=== PATIENT | female | born 1975 | race African-American/Black ===

== ENCOUNTER 2017-08-09 11:50 | Emergency (ER) | payer OTHER ==
[~2017-08-09] VITALS: Ht 170.2 cm; Wt 43.0 kg
[~2017-08-09 11:50] MED LIST: AMOX125S8 PO; DIPH25CA83 PO; TRAM50TA3 PO
[2017-08-09] MEDS ORDERED: IBUPROFEN 400MG TABLET PO ONE (15:30)
[2017-08-09] MEDS ORDERED: ACETAMINOPHEN 500MG TABLET PO ONE (15:30)
[2017-08-09 17:20] VITALS: BP 127/87
== END 2017-08-09 17:54 | disposition home or self-care (01) ==
LOC: ER 12:27
DX: M25.512 Pain in left shoulder (principal); M79.602 Pain in left arm; M85.80 Other specified disorders of bone density and structure, unspecified site; F11.10 Opioid abuse, uncomplicated; F12.10 Cannabis abuse, uncomplicated; W22.8XXA Striking against or struck by other objects, initial encounter; Y93.89 Activity, other specified; Y92.811 Bus as the place of occurrence of the external cause
CPT/HCPCS: 29125; 73030; 73130; 81025; 99284

== ENCOUNTER 2019-05-29 13:01 | Inpatient (IN) | payer MEDICAID, OTHER ==
[~2019-05-29] VITALS: Ht 152.4 cm; Wt 44.0 kg
[~2019-05-29 13:01] MED LIST changes: +AMOX125S12 PO; -AMOX125S8 PO
[2019-05-29] MEDS ORDERED: ONDANSETRON HCL 4MG/2ML INJ IV STA (13:39)
[2019-05-29] MEDS ORDERED: MORPHINE SULFATE 4 MG/ML CPJ (NOT FOR IM USE) IV STA (13:39)
[2019-05-29] MEDS ORDERED: SODIUM CHLORIDE 0.9% 1,000 ML IV ONE (13:39)
[2019-05-29] MEDS ORDERED: FAMOTIDINE 20MG/2ML VIAL IV STA (13:39)
[2019-05-29 14:04] LABS: BASOPHILS % 1.1 % (0.0-2.0); EOSINOPHILS % 1.4 % (0.0-5.0); HEMATOCRIT. 35.4 % (36.0-48.0); HEMOGLOBIN. 11.9 g/dL (12.0-16.0); LYMPHOCYTES % 22.5 % (20.0-50.0); MEAN CORPUSCULAR HEMOGLOBIN 32.7 pg (28.0-32.0); MEAN CORPUSCULAR VOLUME 96.9 fL (81.0-99.0); MEAN PLATELET VOLUME 6.7 fl (7.4-10.4); MONOCYTES % 10.4 % (2.0-8.0); NEUTROPHILS % 64.6 % (40.0-76.0); PLATELET 298 x1000/uL (130-400); RED BLOOD CELL COUNT 3.66 mill/uL (4.2-5.4); RED CELL DISTRIBUTION WIDTH 18.3 % (11.6-14.6)
[2019-05-29 14:12] LABS: CHLORIDE 101 mEq/L (98-107)
[2019-05-29 14:14] LABS: INR 1.3; PROTHROMBIN TIME 12.9 sec (9.6-11.0)
[2019-05-29 14:34] LABS: HCG SCREEN NEGATIVE
[2019-05-29] MEDS ORDERED: SODIUM CHLORIDE 0.9% 1000ML BAG (SEPSIS BOLUS) IV NR (14:45)
[2019-05-29] MEDS ORDERED: ENOXAPARIN 40MG/0.4ML SYR SUBCUT SCH (15:00)
[2019-05-29] MEDS ORDERED: GUAIFENESIN 200MG/10ML SUGAR FREE UDC PO PRN (15:00)
[2019-05-29] MEDS ORDERED: DIPHENHYDRAMINE 50MG/ML VIAL IV PRN (15:00)
[2019-05-29] MEDS ORDERED: CLONIDINE 0.1MG TABLET PO PRN (15:00)
[2019-05-29] MEDS ORDERED: MAGNESIUM/ALUMINUM HYDROXIDE/SIMETHICONE 30ML UDC PO PRN (15:00)
[2019-05-29] MEDS ORDERED: ONDANSETRON HCL 4MG/2ML INJ IV PRN (15:00)
[2019-05-29] MEDS ORDERED: ACETAMINOPHEN 325MG TABLET PO PRN (15:00)
[2019-05-29 15:24] LABS: PHOSPHORUS 3.5 mg/dL (2.5-4.9)
[2019-05-29 17:12] LABS: CLARITY URINE CLOUDY (CLEAR); COLOR URINE YELLOW (YELLOW); KETONES URINE NEGATIVE (NEGATIVE); LEUKOCYTE ESTERASE URINE 2+ (NEGATIVE); NITRITE URINE POSITIVE (NEGATIVE); OCCULT BLOOD URINE TRACE (NEGATIVE); PROTEIN URINE NEGATIVE (NEGATIVE); SPECIFIC GRAVITY URINE 1.062 (1.005-1.030); UROBILINOGEN URINE 0.2 E.U./dL (0.2-1.0)
[2019-05-29] MEDS ORDERED: CEFTRIAXONE 1 G PREMIX 50 ML IV NR (17:45)
[2019-05-29] MEDS: MORPHINE SULFATE 2 MG/ML CPJ (NOT FOR IM USE) IV PRN ×2 (18:12→22:19)
[2019-05-29] MEDS ORDERED: IOHEXOL-300 100 ML BOTTLE ONE (18:29)
[2019-05-29 20:15] VITALS: BP 133/85
[2019-05-29] MEDS ORDERED: DEXTROSE 50% WATER 50ML SYRINGE IV PRN (21:00)
[2019-05-29] MEDS: BLOOD SUGAR DIAGNOSTIC STRIP TEST SCH (21:04)
[2019-05-29] MEDS: DEXT 5%/0.9% NACL 1,000 ML IV SCH (21:39)
[2019-05-29] MEDS: ENOXAPARIN 30MG/0.3ML SYR SUBCUT SCH (21:40)
[2019-05-29] MEDS: INSULIN LISPRO 100 UNITS/ML SUBCUT SCH (21:57)
[2019-05-29 23:07] VITALS: BP 133/85
[2019-05-30] VITALS: BP 124/79
[2019-05-30 04:00] VITALS: BP 151/95
[2019-05-30] MEDS: MORPHINE SULFATE 2 MG/ML CPJ (NOT FOR IM USE) IV PRN ×5 (04:29→22:43)
[2019-05-30] MEDS: BLOOD SUGAR DIAGNOSTIC STRIP TEST SCH ×4 (06:30→21:45)
[2019-05-30 06:55] LABS: BASOPHILS % 0.8 % (0.0-2.0); EOSINOPHILS % 1.5 % (0.0-5.0); HEMATOCRIT. 32.5 % (36.0-48.0); HEMOGLOBIN. 10.9 g/dL (12.0-16.0); LYMPHOCYTES % 13.6 % (20.0-50.0); MEAN CORPUSCULAR HEMOGLOBIN 32.7 pg (28.0-32.0); MEAN CORPUSCULAR VOLUME 97.3 fL (81.0-99.0); MEAN PLATELET VOLUME 7.2 fl (7.4-10.4); MONOCYTES % 7.1 % (2.0-8.0); PLATELET 241 x1000/uL (130-400); RED BLOOD CELL COUNT 3.34 mill/uL (4.2-5.4)
[2019-05-30 08:00] VITALS: BP 130/79
[2019-05-30 08:10] LABS: HEPATITIS B SURFACE ANTIGEN NEGATIVE
[2019-05-30 08:37] LABS: CHLORIDE 101 mEq/L (98-107)
[2019-05-30 08:39] LABS: HEPATITIS A AB IGM NEGATIVE (NEGATIVE)
[2019-05-30 08:48] LABS: GAMMA GLUTAMYL TRANSPEPTIDASE 274 IU/L (7-32); HDL CHOLESTEROL 41 mg/dL (40-59); LDL CHOLESTEROL 27 mg/dL (5-100)
[2019-05-30] MEDS: DOCUSATE SODIUM 100MG CAPSULE PO PRN (08:51)
[2019-05-30] MEDS: INSULIN LISPRO 100 UNITS/ML SUBCUT SCH ×4 (09:03→21:00)
[2019-05-30 12:00] VITALS: BP 128/79
[2019-05-30] MEDS ORDERED: CEFTRIAXONE 1 G PREMIX 50 ML IV SCH (12:45)
[2019-05-30] MEDS ORDERED: POTASSIUM CHLORIDE 20MEQ TABLET SR PO SCH (14:00)
[2019-05-30] MEDS: CEFTRIAXONE 1,000 MG in DEXTROSE 5% WATER 50 ML IV SCH (15:51)
[2019-05-30 16:10] VITALS: BP 129/73
[2019-05-30 20:00] VITALS: BP 125/78
[2019-05-30] MEDS: ENOXAPARIN 30MG/0.3ML SYR SUBCUT SCH (20:27)
[2019-05-30] MEDS: DEXT 5%/0.9% NACL 1,000 ML IV SCH (20:32)
[2019-05-31] VITALS: BP 118/73
[2019-05-31] MEDS: MORPHINE SULFATE 2 MG/ML CPJ (NOT FOR IM USE) IV PRN ×3 (03:56→19:57)
[2019-05-31 04:00] VITALS: BP 103/65
[2019-05-31] MEDS: BLOOD SUGAR DIAGNOSTIC STRIP TEST SCH ×4 (06:43→21:50)
[2019-05-31 08:00] VITALS: BP 115/67
[2019-05-31] MEDS: INSULIN LISPRO 100 UNITS/ML SUBCUT SCH ×4 (08:10→22:09)
[2019-05-31 10:52] LABS: BASOPHILS % 0.7 % (0.0-2.0); EOSINOPHILS % 4.3 % (0.0-5.0); HEMATOCRIT. 33.8 % (36.0-48.0); HEMOGLOBIN. 11.4 g/dL (12.0-16.0); MEAN CORPUSCULAR HEMOGLOBIN 32.9 pg (28.0-32.0); MEAN CORPUSCULAR VOLUME 97.4 fL (81.0-99.0); MEAN PLATELET VOLUME 7.5 fl (7.4-10.4); MONOCYTES % 9.6 % (2.0-8.0); NEUTROPHILS % 60.4 % (40.0-76.0); PLATELET 206 x1000/uL (130-400); RED BLOOD CELL COUNT 3.46 mill/uL (4.2-5.4); RED CELL DISTRIBUTION WIDTH 17.4 % (11.6-14.6)
[2019-05-31 12:00] VITALS: BP 151/80
[2019-05-31] MEDS: DOCUSATE SODIUM 100MG CAPSULE PO PRN (12:06)
[2019-05-31] MEDS: CEFTRIAXONE 1,000 MG in DEXTROSE 5% WATER 50 ML IV SCH (13:20)
[2019-05-31 16:00] VITALS: BP 136/79
[2019-05-31 18:46] LABS: CHLORIDE 98 mEq/L (98-107)
[2019-05-31] MEDS: LIPASE/PROTEASE/AMYLASE 4,200/14,200/24,600 UNITS CAP DR PO SCH (19:13)
[2019-05-31 20:00] VITALS: BP 117/78
[2019-05-31] MEDS ORDERED: LEVOFLOXACIN 750MG PREMIX 150 ML IV SCH (20:00)
[2019-05-31] MEDS: ENOXAPARIN 30MG/0.3ML SYR SUBCUT SCH (21:50)
[2019-05-31] MEDS: DEXT 5%/0.9% NACL 1,000 ML IV SCH (21:51)
[2019-06-01] VITALS: BP 114/75
[2019-06-01] MEDS: MORPHINE SULFATE 2 MG/ML CPJ (NOT FOR IM USE) IV PRN ×3 (00:09→10:48)
[2019-06-01 04:12] VITALS: BP 142/65
[2019-06-01] MEDS: DEXT 5%/0.9% NACL 1,000 ML IV SCH (04:14)
[2019-06-01] MEDS: BLOOD SUGAR DIAGNOSTIC STRIP TEST SCH ×2 (06:58→12:40)
[2019-06-01 08:00] VITALS: BP 117/79
[2019-06-01] MEDS: LIPASE/PROTEASE/AMYLASE 4,200/14,200/24,600 UNITS CAP DR PO SCH (08:38)
[2019-06-01] MEDS: DOCUSATE SODIUM 100MG CAPSULE PO PRN (08:38)
[2019-06-01] MEDS: INSULIN LISPRO 100 UNITS/ML SUBCUT SCH (08:39)
[2019-06-01 11:39] LABS: BASOPHILS % 0.4 % (0.0-2.0); HEMATOCRIT. 31.4 % (36.0-48.0); HEMOGLOBIN. 10.4 g/dL (12.0-16.0); LYMPHOCYTES % 19.6 % (20.0-50.0); MEAN CORPUSCULAR HEMOGLOBIN 32.6 pg (28.0-32.0); MEAN CORPUSCULAR VOLUME 97.8 fL (81.0-99.0); MEAN PLATELET VOLUME 7.8 fl (7.4-10.4); MONOCYTES % 7.8 % (2.0-8.0); NEUTROPHILS % 69.2 % (40.0-76.0); PLATELET 182 x1000/uL (130-400); RED BLOOD CELL COUNT 3.21 mill/uL (4.2-5.4); RED CELL DISTRIBUTION WIDTH 17.8 % (11.6-14.6)
[2019-06-01] MEDS ORDERED: LEVO750T46 MT (12:08)
[2019-06-01] MEDS ORDERED: LIPA1CAP27 PO (12:08)
[2019-06-01] MEDS ORDERED: METF-414 MT (12:08)
[2019-06-01 14:08] VITALS: BP 128/86
== END 2019-06-01 14:37 | disposition home or self-care (01) | DRG 282 ==
LOC: ER 13:01 → 7WST 14:57 → EDBEDREQ 15:06 → ENRESERV 19:43
PROVIDERS: ADMIT Internal Medicine; ATTEND Internal Medicine
DX: K85.90 Acute pancreatitis without necrosis or infection, unspecified (principal); E87.2 Acidosis; R64 Cachexia; E44.0 Moderate protein-calorie malnutrition; K74.60 Unspecified cirrhosis of liver; E87.1 Hypo-osmolality and hyponatremia; E11.9 Type 2 diabetes mellitus without complications; D50.9 Iron deficiency anemia, unspecified; K86.1 Other chronic pancreatitis; E87.6 Hypokalemia; F17.210 Nicotine dependence, cigarettes, uncomplicated; I10 Essential (primary) hypertension; R74.0 Nonspecific elevation of levels of transaminase and lactic acid dehydrogenase [LDH]; F10.10 Alcohol abuse, uncomplicated; Z79.899 Other long term (current) drug therapy; Z68.1 Body mass index [BMI] 19.9 or less, adult; N39.0 Urinary tract infection, site not specified
CPT/HCPCS: 36415; 71045; 74177; 80048; 80061; 80076; 81003; 82248; 82962; 82977; 83605; 83735; 84100; 84443; 84484; 84703; 86705; 86709; 86803; 87077; 87186; 87340; 93005; 93970; 99285; C1893; J0696; J1650; J1815; J1956; J2270; J2405; J3490; J7030; J7042; J7060; Q9967

== ENCOUNTER 2019-10-18 16:52 | Emergency (ER) | payer MEDICAID ==
[~2019-10-18] VITALS: Ht 170.2 cm; Wt 43.0 kg
[~2019-10-18 16:52] MED LIST changes: -AMOX125S12 PO; -DIPH25CA83 PO; +LEVO750T46 MT; +LIPA1CAP27 PO; +METF-414 MT; -TRAM50TA3 PO
[2019-10-18] MEDS ORDERED: IBUPROFEN 600MG TABLET PO STA (20:54)
[2019-10-18 21:30] VITALS: BP 115/60
== END 2019-10-18 21:48 | disposition home or self-care (01) ==
LOC: ER 16:52
DX: M54.9 Dorsalgia, unspecified (principal); R05 Cough; E11.9 Type 2 diabetes mellitus without complications; D64.9 Anemia, unspecified
CPT/HCPCS: 71045; 99283

== ENCOUNTER 2020-04-04 17:46 | Inpatient (IN) | payer MEDICAID ==
[~2020-04-04] VITALS: Ht 170.2 cm; Wt 45.0 kg
[2020-04-04] MEDS ORDERED: ACETAMINOPHEN WITH CODEINE 300/30MG TABLET PO STA (18:37)
[2020-04-04] MEDS ORDERED: ONDANSETRON HCL 4MG/2ML INJ IM STA (18:37)
[2020-04-04 19:37] LABS: BASOPHILS % 1.3 % (0.0-2.0); EOSINOPHILS % 0.4 % (0.0-5.0); HEMATOCRIT. 25.9 % (36.0-48.0); HEMOGLOBIN. 8.6 g/dL (12.0-16.0); LYMPHOCYTES % 20.9 % (20.0-50.0); MEAN CORPUSCULAR HEMOGLOBIN 30.1 pg (28.0-32.0); MEAN CORPUSCULAR VOLUME 90.1 fL (81.0-99.0); MEAN PLATELET VOLUME 6.6 fl (7.4-10.4); MONOCYTES % 9.1 % (2.0-8.0); NEUTROPHILS % 68.3 % (40.0-76.0); PLATELET 486 x1000/uL (130-400); RED BLOOD CELL COUNT 2.88 mill/uL (4.2-5.4)
[2020-04-04 19:41] LABS: CHLORIDE 97 mEq/L (98-107)
[2020-04-04 19:45] LABS: INR 1.1; PROTHROMBIN TIME 11.1 sec (9.6-11.0)
[2020-04-04 19:59] LABS: HCG SCREEN NEGATIVE
[2020-04-04 20:01] LABS: CLARITY URINE CLEAR (CLEAR); COLOR URINE YELLOW (YELLOW); KETONES URINE NEGATIVE (NEGATIVE); LEUKOCYTE ESTERASE URINE 3+ (NEGATIVE); NITRITE URINE POSITIVE (NEGATIVE); OCCULT BLOOD URINE NEGATIVE (NEGATIVE); PROTEIN URINE TRACE (NEGATIVE); SPECIFIC GRAVITY URINE 1.011 (1.005-1.030); UROBILINOGEN URINE 0.2 E.U./dL (0.2-1.0)
[2020-04-04] MEDS ORDERED: AZITHROMYCIN 500 MG in DEXT 5% WATER 250 ML IV STA (20:31)
[2020-04-04] MEDS ORDERED: CEFTRIAXONE 1 G PREMIX 50 ML IV ONE (20:45)
[2020-04-04] MEDS ORDERED: ACETAMINOPHEN 325MG TABLET PO PRN (21:30)
[2020-04-05 01:08] VITALS: BP 155/106
[2020-04-05] MEDS ORDERED: ONDANSETRON HCL 4MG/2ML INJ IV PRN (09:15)
[2020-04-05] MEDS ORDERED: ACETAMINOPHEN 325MG TABLET PO PRN (09:15)
[2020-04-05] MEDS ORDERED: LEVOFLOXACIN 750MG PREMIX 150 ML IV SCH (10:00)
[2020-04-05] MEDS ORDERED: KETOROLAC 30MG/ML VIAL IV PRN (15:45)
[2020-04-06 11:40] LABS: *BARBITURATES SCREEN URINE NEGATIVE (NEGATIVE); *BENZODIAZEPINES SCREEN URINE NEGATIVE (NEGATIVE); *COCAINE SCREEN URINE NEGATIVE (NEGATIVE)
[2020-04-06 11:42] LABS: *AMPHETAMINES SCREEN URINE NEGATIVE (NEGATIVE); METHADONE URINE SCREEN NEGATIVE (NEGATIVE); OPIATES URINE SCREEN NEGATIVE (NEGATIVE)
[2020-04-06 11:57] LABS: CANNABINOID URINE SCREEN PRESUMTIVE POSITIVE (NEGATIVE); PHENCYCLIDINE URINE SCREEN PRESUMTIVE POSITIVE (NEGATIVE)
== END 2020-04-05 03:09 | disposition left against medical advice (07) | DRG 720 ==
LOC: ER 17:46 → EDBEDREQSVC 20:50 → MICUSO 21:26 → EDBEDREQ 21:27 → EDBEDREQTM 21:27
PROVIDERS: ADMIT Internal Medicine; ATTEND Internal Medicine
DX: A41.9 Sepsis, unspecified organism (principal); J18.9 Pneumonia, unspecified organism; N39.0 Urinary tract infection, site not specified; E87.1 Hypo-osmolality and hyponatremia; E87.8 Other disorders of electrolyte and fluid balance, not elsewhere classified; E43 Unspecified severe protein-calorie malnutrition; J45.909 Unspecified asthma, uncomplicated; K92.2 Gastrointestinal hemorrhage, unspecified; E11.9 Type 2 diabetes mellitus without complications; F12.90 Cannabis use, unspecified, uncomplicated; Z53.29 Procedure and treatment not carried out because of patient's decision for other reasons; D64.9 Anemia, unspecified; A15.9 Respiratory tuberculosis unspecified; Z79.899 Other long term (current) drug therapy; Z79.2 Long term (current) use of antibiotics
CPT/HCPCS: 36415; 71045; 80053; 80305; 81003; 83880; 84145; 84484; 84703; 85025; 87077; 87186; 93005; 99285; J0456; J1956; J2405; J7060

== ENCOUNTER 2020-07-22 03:18 | Inpatient (IN) | payer MEDICAID ==
[~2020-07-22] VITALS: Ht 160 cm; Wt 43.6 kg
[2020-07-22] MEDS ORDERED: ONDANSETRON HCL 4MG/2ML INJ IV STA (05:21)
[2020-07-22] MEDS ORDERED: LEVETIRACETAM 500MG PREMIX 100 ML IV ONE (05:30)
[2020-07-22] MEDS ORDERED: SODIUM CHLORIDE 0.9% 1,000 ML IV ONE (05:30)
[2020-07-22 05:36] LABS: HEMATOCRIT. 32.5 % (36.0-48.0); HEMOGLOBIN. 10.6 g/dL (12.0-16.0); MEAN CORPUSCULAR HEMOGLOBIN 29.8 pg (28.0-32.0); MEAN PLATELET VOLUME 7.8 fl (7.4-10.4); PLATELET 172 x1000/uL (130-400); RED BLOOD CELL COUNT 3.57 mill/uL (4.2-5.4); RED CELL DISTRIBUTION WIDTH 19.8 % (11.6-14.6)
[2020-07-22 05:51] LABS: CHLORIDE 106 mEq/L (98-107)
[2020-07-22 05:55] LABS: ETHANOL BLOOD < 10 mg/dL
[2020-07-22 06:58] LABS: PLATELET ESTIMATE NORMAL
[2020-07-22 08:30] LABS: CLARITY URINE CLOUDY (CLEAR); COLOR URINE DARK YELLOW (YELLOW); KETONES URINE NEGATIVE (NEGATIVE); LEUKOCYTE ESTERASE URINE 1+ (NEGATIVE); NITRITE URINE NEGATIVE (NEGATIVE); OCCULT BLOOD URINE 2+ (NEGATIVE); PROTEIN URINE 2+ (NEGATIVE); SPECIFIC GRAVITY URINE 1.025 (1.005-1.030)
[2020-07-22 09:15] LABS: *AMPHETAMINES SCREEN URINE NEGATIVE (NEGATIVE); *BARBITURATES SCREEN URINE NEGATIVE (NEGATIVE); *BENZODIAZEPINES SCREEN URINE NEGATIVE (NEGATIVE)
[2020-07-22 09:17] LABS: *COCAINE SCREEN URINE NEGATIVE (NEGATIVE); METHADONE URINE SCREEN NEGATIVE (NEGATIVE); OPIATES URINE SCREEN NEGATIVE (NEGATIVE)
[2020-07-22 09:38] LABS: CANNABINOID URINE SCREEN PRESUMTIVE POSITIVE (NEGATIVE); PHENCYCLIDINE URINE SCREEN PRESUMTIVE POSITIVE (NEGATIVE)
[2020-07-22] MEDS ORDERED: DEXTROSE 50% WATER 50ML SYRINGE IV PRN (12:45)
[2020-07-22] MEDS: BLOOD SUGAR DIAGNOSTIC STRIP TEST SCH ×2 (13:00→21:00)
[2020-07-22] MEDS: INSULIN LISPRO 100 UNITS/ML SUBCUT SCH ×3 (13:20→21:00)
[2020-07-22] MEDS ORDERED: CEFTRIAXONE 1,000 MG in DEXTROSE 5% WATER 50 ML IV SCH (13:45)
[2020-07-22] MEDS: ONDANSETRON HCL 4MG/2ML INJ IV PRN ×2 (16:06→22:53)
[2020-07-22] MEDS ORDERED: LORAZEPAM 2MG/ML CPJ IV PRN (18:30)
[2020-07-22 22:30] VITALS: BP 109/72
[2020-07-22] MEDS: LEVETIRACETAM 500MG TABLET PO SCH (22:41)
[2020-07-22 23:55] VITALS: BP 109/72
[2020-07-23] VITALS: BP 101/68
[2020-07-23 04:00] VITALS: BP 92/61
[2020-07-23] MEDS: BLOOD SUGAR DIAGNOSTIC STRIP TEST SCH ×2 (06:44→12:12)
[2020-07-23] MEDS: ACETAMINOPHEN 325MG TABLET PO PRN ×2 (06:44→07:54)
[2020-07-23] MEDS: INSULIN LISPRO 100 UNITS/ML SUBCUT SCH ×2 (07:06→12:15)
[2020-07-23 08:00] VITALS: BP 133/73
[2020-07-23] MEDS: LEVETIRACETAM 500MG TABLET PO SCH (09:37)
[2020-07-23 12:00] VITALS: BP 99/72
[2020-07-23] MEDS ORDERED: LEVO500T2 MT (12:07)
[2020-07-23] MEDS ORDERED: KEPP500 PO (12:07)
[2020-07-23] MEDS ORDERED: CEFTRIAXONE 1,000 MG in DEXTROSE 5% WATER 50 ML IV SCH (14:00)
[2020-07-23 15:40] VITALS: BP 99/72
[2020-07-23 16:00] VITALS: BP 106/73
== END 2020-07-23 17:20 | disposition home or self-care (01) | DRG 53 ==
LOC: ER 03:18 → 5WST 05:39 → EDBEDREQ 05:40 → EDBEDREQTM 05:40 → ENRESERV 20:24 → 5WST 07-23 00:21
PROVIDERS: ADMIT Internal Medicine; ATTEND Internal Medicine
DX: G40.409 Other generalized epilepsy and epileptic syndromes, not intractable, without status epilepticus (principal); T50.901A Poisoning by unspecified drugs, medicaments and biological substances, accidental (unintentional), initial encounter; J45.909 Unspecified asthma, uncomplicated; E11.9 Type 2 diabetes mellitus without complications; I10 Essential (primary) hypertension; F12.90 Cannabis use, unspecified, uncomplicated; D64.9 Anemia, unspecified; D72.825 Bandemia; F17.210 Nicotine dependence, cigarettes, uncomplicated; Z71.51 Drug abuse counseling and surveillance of drug abuser; Z79.84 Long term (current) use of oral hypoglycemic drugs; Z79.899 Other long term (current) drug therapy; F16.90 Hallucinogen use, unspecified, uncomplicated; N39.0 Urinary tract infection, site not specified
CPT/HCPCS: 36415; 70551; 71045; 80053; 80305; 80320; 81003; 82962; 85025; 93005; 96365; 99285; J0696; J1815; J1953; J2405; J7030; J7060; G0480

== ENCOUNTER 2023-12-31 16:55 | Inpatient (IN) | payer MEDICAID ==
[~2023-12-31] VITALS: Ht 170.2 cm; Wt 67.8 kg
[~2023-12-31 16:55] MED LIST changes: +KEPP500 PO; +LEVO500T2 MT; -LEVO750T46 MT
[2023-12-31] MEDS: KETOROLAC 30MG/ML VIAL IM ONE (18:45)
[2023-12-31] MEDS: ONDANSETRON 4MG ODT PO ONE (18:45)
[2023-12-31 19:58] LABS: BASOPHILS % 0.6 % (0.0-2.0); EOSINOPHILS % 0.2 % (0.0-5.0); HEMATOCRIT. 23.7 % (36.0-48.0); MEAN CORPUSCULAR HEMOGLOBIN 29.8 pg (28.0-32.0); MEAN CORPUSCULAR HGB CONC 33.9 g/dL (31.0-37.0); MEAN CORPUSCULAR VOLUME 87.9 fL (81.0-99.0); MEAN PLATELET VOLUME 7.1 fl (7.4-10.4); MONOCYTES % 8.6 % (2.0-8.0); NEUTROPHILS % 75.6 % (40.0-76.0); PLATELET 357 x1000/uL (130-400); RED BLOOD CELL COUNT 2.69 mill/uL (4.2-5.4); RED CELL DISTRIBUTION WIDTH 19.7 % (11.6-14.6); WHITE BLOOD COUNT 10.7 x1000/uL (4.5-11.0)
[2023-12-31 20:00] LABS: CHLORIDE 96 mEq/L (98-107); POTASSIUM 3.9 mEq/L (3.5-5.1); SODIUM 125 mEq/L (136-145)
[2023-12-31 20:01] LABS: CARBON DIOXIDE 22 mEq/L (21-32)
[2023-12-31 20:02] LABS: CALCIUM 9.3 mg/dL (8.7-10.4)
[2023-12-31 20:06] LABS: CREATININE 0.6 mg/dL (0.6-1.0); GLUCOSE 125 mg/dL (70-105)
[2023-12-31 20:07] LABS: ETHANOL BLOOD 10 mg/dL (<10); UREA NITROGEN BLOOD 7 mg/dL (9-23)
[2023-12-31 20:08] LABS: ALANINE AMINOTRANSFERASE 7 IU/L (10-49); ALBUMIN 4.1 g/dL (3.2-4.8); ASPARTATE AMINOTRANSFERASE 17 IU/L (<34)
[2023-12-31 20:09] LABS: BILIRUBIN TOTAL 0.4 mg/dL (0.1-1.0); PROTEIN TOTAL 7.8 g/dL (6.0-8.3)
[2024-01-01 00:28] VITALS: BP 109/79; PULSE 90; RESP 18; TEMP 97.9
[2024-01-01] MEDS ORDERED: ACETAMINOPHEN 325MG TABLET PO PRN (07:00)
[2024-01-01] MEDS ORDERED: IPRATROPIUM/ALBUTEROL 0.5-3(2.5)MG/3ML NEB HHN PRN (07:00)
[2024-01-01 08:00] VITALS: BP 108/75; PULSE 111; RESP 18; TEMP 97.9
[2024-01-01] MEDS: LEVETIRACETAM 500MG TABLET PO SCH (08:56)
[2024-01-01] MEDS: METFORMIN HCL 500MG TABLET PO SCH (08:57)
[2024-01-01] MEDS: ENOXAPARIN 40MG/0.4ML SYR SUBCUT SCH (08:57)
[2024-01-01] MEDS: LEVOFLOXACIN 500MG PREMIX 100 ML IV SCH (08:57)
[2024-01-01] MEDS: GUAIFENESIN 200MG/10ML SUGAR FREE UDC PO PRN (09:00)
[2024-01-01] MEDS ORDERED: DEXTROSE 50% WATER 50ML SYRINGE IV PRN (09:30)
[2024-01-01] MEDS ORDERED: MAGNESIUM/ALUMINUM HYDROXIDE/SIMETHICONE 30ML UDC PO PRN (09:30)
[2024-01-01] MEDS ORDERED: ONDANSETRON HCL 4MG/2ML INJ IV PRN (09:30)
[2024-01-01] MEDS ORDERED: CLONIDINE 0.1MG TABLET PO PRN (09:30)
[2024-01-01] MEDS ORDERED: HYDROCODONE/ACETAMINOPHEN 5/325MG TABLET PO PRN (09:30)
[2024-01-01] MEDS ORDERED: NALOXONE HCL 0.4MG/ML VIAL IV PRN (09:45)
[2024-01-01] MEDS: SODIUM CHLORIDE 0.9% 1,000 ML IV SCH (10:19)
[2024-01-01] MEDS: BLOOD SUGAR DIAGNOSTIC STRIP TEST SCH (11:48)
[2024-01-01 12:00] VITALS: BP 102/62; PULSE 91; RESP 18; TEMP 98
[2024-01-01] MEDS: INSULIN LISPRO 100 UNITS/ML SUBCUT SCH (12:20)
[2024-01-01 12:46] LABS: CLARITY URINE CLOUDY (CLEAR); COLOR URINE YELLOW (YELLOW); GLUCOSE URINE NEGATIVE (NEGATIVE); KETONES URINE 2+ (NEGATIVE); LEUKOCYTE ESTERASE URINE 3+ (NEGATIVE); NITRITE URINE POSITIVE (NEGATIVE); OCCULT BLOOD URINE NEGATIVE (NEGATIVE); PROTEIN URINE TRACE (NEGATIVE); SPECIFIC GRAVITY URINE 1.016 (1.005-1.030)
[2024-01-01 12:56] LABS: *AMPHETAMINES SCREEN URINE NEGATIVE (NEGATIVE); *BARBITURATES SCREEN URINE NEGATIVE (NEGATIVE); *BENZODIAZEPINES SCREEN URINE NEGATIVE (NEGATIVE); *COCAINE SCREEN URINE NEGATIVE (NEGATIVE); ECSTASY MDMA SCREEN URINE NEGATIVE (NEGATIVE); METHADONE URINE SCREEN NEGATIVE (NEGATIVE); OPIATES URINE SCREEN NEGATIVE (NEGATIVE); PHENCYCLIDINE URINE SCREEN PRESUMTIVE POSITIVE (NEGATIVE)
[2024-01-01 13:21] LABS: BACTERIA URINE 4+; SQUAMOUS EPITHELIAL CELL URINE 3+ /lpf (RARE/1+)
[2024-01-01 13:22] LABS: WBC URINE 15-25 /hpf (0-2)
[2024-01-01 13:24] LABS: TRICHOMONAS URINE FEW
[2024-01-01 13:26] LABS: RBC URINE NONE SEEN /hpf (0-2)
[2024-01-01] MEDS: DEXTROSE 50% WATER 50ML SYRINGE IV PRN (13:54)
[2024-01-01 13:57] LABS: IRON 27 ug/dL (50-170)
[2024-01-01 14:00] LABS: TOTAL IRON BINDING CAPACITY 349 ug/dl (250-425)
[2024-01-01 14:07] LABS: CANNABINOID URINE SCREEN PRESUMPTIVE POSITIVE (NEGATIVE)
[2024-01-01 16:00] VITALS: BP 120/65; PULSE 78; RESP 18; TEMP 98.1
[2024-01-01 16:03] LABS: OSMOLALITY URINE 462 mOsm/kg (500-850)
[2024-01-01 20:00] VITALS: BP 125/70; PULSE 84; RESP 18; TEMP 99.5
[2024-01-01] MEDS: INSULIN LISPRO 100 UNITS/ML SUBCUT NR (23:20)
[2024-01-01] MEDS: SODIUM CHLORIDE 0.9% 1,000 ML IV ONE (23:22)
[2024-01-02] VITALS: BP 113/76; PULSE 99; RESP 18; TEMP 97.8
[2024-01-02 04:00] VITALS: BP 96/53; PULSE 89; RESP 18; TEMP 95.9
[2024-01-02 06:21] LABS: BASOPHILS % 0.3 % (0.0-2.0); EOSINOPHILS % 0.1 % (0.0-5.0); HEMATOCRIT. 22.2 % (36.0-48.0); HEMOGLOBIN. 7.2 g/dL (12.0-16.0); LYMPHOCYTES % 11.2 % (20.0-50.0); MEAN CORPUSCULAR HGB CONC 32.5 g/dL (31.0-37.0); MEAN CORPUSCULAR VOLUME 89.1 fL (81.0-99.0); MEAN PLATELET VOLUME 7.5 fl (7.4-10.4); MONOCYTES % 13.8 % (2.0-8.0); NEUTROPHILS % 74.6 % (40.0-76.0); PLATELET 342 x1000/uL (130-400); RED CELL DISTRIBUTION WIDTH 19.7 % (11.6-14.6); WHITE BLOOD COUNT 8.7 x1000/uL (4.5-11.0)
[2024-01-02 06:25] LABS: CARBON DIOXIDE 23 mEq/L (21-32); CHLORIDE 99 mEq/L (98-107); POTASSIUM 2.9 mEq/L (3.5-5.1); SODIUM 129 mEq/L (136-145)
[2024-01-02 06:30] LABS: UREA NITROGEN BLOOD 7 mg/dL (9-23)
[2024-01-02 06:31] LABS: GLUCOSE 62 mg/dL (70-105); PROTEIN TOTAL 6.4 g/dL (6.0-8.3); TRIGLYCERIDE 109 mg/dL (0-150)
[2024-01-02 06:32] LABS: ALANINE AMINOTRANSFERASE < 7 IU/L (10-49); ALBUMIN 3.5 g/dL (3.2-4.8); ASPARTATE AMINOTRANSFERASE 18 IU/L (<34); CHOLESTEROL 106 mg/dL (<200); LDL CHOLESTEROL 43 mg/dL (5-100)
[2024-01-02 06:33] LABS: BILIRUBIN DIRECT 0.1 mg/dL (<=3.0); BILIRUBIN TOTAL 0.3 mg/dL (0.1-1.0); HDL CHOLESTEROL 41 mg/dL (>65); PHOSPHORUS 2.2 mg/dL (2.5-4.9); T4 FREE 1.23 ng/dL (0.89-1.76); THYROID STIMULATING HORMONE 1.24 uIU/mL (0.55-4.78)
[2024-01-02 06:46] LABS: CREATININE 0.3 mg/dL (0.6-1.0)
[2024-01-02 07:17] LABS: CALCIUM 9.2 mg/dL (8.7-10.4)
[2024-01-02 08:31] VITALS: BP 120/71; PULSE 58; RESP 18; TEMP 97.9
[2024-01-02] MEDS: OMEPRAZOLE 20MG CAPSULE EXTENDED RELEASE PO SCH (09:18)
[2024-01-02] MEDS: INSULIN GLARGINE 100 UNITS/ML SUBCUT SCH (09:27)
[2024-01-02 12:00] VITALS: BP 134/80; PULSE 81; RESP 20; TEMP 98
[2024-01-02] MEDS ORDERED: POTASSIUM PHOSPHATE 20 MMOL in DEXT 5% WATER 243.3333 ML IV NR (14:00)
[2024-01-02] MEDS: KCL 20MEQ/100ML PREMIX 100 ML IV SCH (15:27)
[2024-01-02 16:00] VITALS: BP 152/80; PULSE 83; RESP 20; TEMP 97.6
[2024-01-02 16:44] LABS: HEMOGLOBIN 7.8 g/dL (12.0-16.0)
[2024-01-02] MEDS: POTASSIUM CHLORIDE 20MEQ TABLET SR PO NR ×2 (18:30→21:56)
[2024-01-02 20:00] VITALS: PULSE 84; RESP 20; TEMP 99.9
[2024-01-03] VITALS: BP 106/63; PULSE 82; RESP 18; TEMP 98.8
[2024-01-03] MEDS: POTASSIUM CHLORIDE 20MEQ TABLET SR PO NR
[2024-01-03 04:00] VITALS: BP 106/59; PULSE 67; RESP 18; TEMP 98.6
[2024-01-03 07:51] LABS: BASOPHILS % 0.5 % (0.0-2.0); EOSINOPHILS % 0.6 % (0.0-5.0); HEMATOCRIT. 21.1 % (36.0-48.0); HEMOGLOBIN. 7.2 g/dL (12.0-16.0); LYMPHOCYTES % 20.6 % (20.0-50.0); MEAN CORPUSCULAR HEMOGLOBIN 29.5 pg (28.0-32.0); MEAN CORPUSCULAR HGB CONC 33.9 g/dL (31.0-37.0); MEAN CORPUSCULAR VOLUME 87.1 fL (81.0-99.0); MEAN PLATELET VOLUME 7.1 fl (7.4-10.4); MONOCYTES % 13.2 % (2.0-8.0); NEUTROPHILS % 65.1 % (40.0-76.0); PLATELET 353 x1000/uL (130-400); RED BLOOD CELL COUNT 2.42 mill/uL (4.2-5.4); RED CELL DISTRIBUTION WIDTH 19.7 % (11.6-14.6); WHITE BLOOD COUNT 7.3 x1000/uL (4.5-11.0)
[2024-01-03 08:00] VITALS: BP 129/73; PULSE 80; RESP 20; TEMP 98.1
[2024-01-03 08:00] LABS: CHLORIDE 105 mEq/L (98-107); POTASSIUM 4.1 mEq/L (3.5-5.1); SODIUM 131 mEq/L (136-145)
[2024-01-03 08:02] LABS: CALCIUM 8.1 mg/dL (8.7-10.4); CARBON DIOXIDE 21 mEq/L (21-32)
[2024-01-03 08:07] LABS: GLUCOSE 137 mg/dL (70-105)
[2024-01-03 08:09] LABS: ALANINE AMINOTRANSFERASE < 7 IU/L (10-49); ALBUMIN 3.1 g/dL (3.2-4.8); ASPARTATE AMINOTRANSFERASE 13 IU/L (<34); BILIRUBIN TOTAL 0.2 mg/dL (0.1-1.0); PHOSPHORUS 1.5 mg/dL (2.5-4.9)
[2024-01-03 08:46] LABS: CREATININE 0.4 mg/dL (0.6-1.0); UREA NITROGEN BLOOD < 5 mg/dL (9-23)
[2024-01-03 08:47] LABS: BILIRUBIN DIRECT < 0.1 mg/dL (<=3.0)
[2024-01-03 12:00] VITALS: BP 119/79; PULSE 95; RESP 16; TEMP 98.1
[2024-01-03] MEDS: MAGNESIUM 2 G PREMIX 50 ML IV NR (13:34)
[2024-01-03] MEDS: SODIUM PHOSPHATE 15 MMOL in DEXT 5% WATER 245 ML IV NR (14:01)
[2024-01-03 16:00] VITALS: BP 118/79; PULSE 89; RESP 18; TEMP 98.4
[2024-01-03 20:00] VITALS: BP 102/64; PULSE 91; RESP 20; TEMP 98.8
[2024-01-04] VITALS: BP 160/73; PULSE 81; RESP 20; TEMP 98.1
[2024-01-04 04:00] VITALS: BP 112/67; PULSE 73; RESP 18; TEMP 96.4
[2024-01-04 07:35] LABS: CARBON DIOXIDE 24 mEq/L (21-32); CHLORIDE 100 mEq/L (98-107); POTASSIUM 4.3 mEq/L (3.5-5.1); SODIUM 132 mEq/L (136-145)
[2024-01-04 07:36] LABS: CALCIUM 9.6 mg/dL (8.7-10.4)
[2024-01-04 07:40] LABS: CREATININE 0.5 mg/dL (0.6-1.0); GLUCOSE 70 mg/dL (70-105)
[2024-01-04 07:43] LABS: PHOSPHORUS 3.9 mg/dL (2.5-4.9)
[2024-01-04 07:52] LABS: UREA NITROGEN BLOOD < 5 mg/dL (9-23)
[2024-01-04 07:58] LABS: BASOPHILS % 1.3 % (0.0-2.0); EOSINOPHILS % 1.1 % (0.0-5.0); HEMATOCRIT. 25.5 % (36.0-48.0); HEMOGLOBIN. 8.4 g/dL (12.0-16.0); MEAN CORPUSCULAR HEMOGLOBIN 28.8 pg (28.0-32.0); MEAN CORPUSCULAR HGB CONC 32.8 g/dL (31.0-37.0); MEAN CORPUSCULAR VOLUME 87.6 fL (81.0-99.0); MONOCYTES % 13.8 % (2.0-8.0); NEUTROPHILS % 60.8 % (40.0-76.0); PLATELET 453 x1000/uL (130-400); RED BLOOD CELL COUNT 2.91 mill/uL (4.2-5.4); RED CELL DISTRIBUTION WIDTH 20.2 % (11.6-14.6); WHITE BLOOD COUNT 7.1 x1000/uL (4.5-11.0)
[2024-01-04 08:00] VITALS: BP 148/90; PULSE 87; RESP 20; TEMP 97.8
[2024-01-04] MEDS: LEVOFLOXACIN 500MG TABLET PO SCH (12:33)
[2024-01-04] MEDS ORDERED: LEVO-65 MT (13:41)
[2024-01-04] MEDS: MEROPENEM 1G/100ML 100 ML IV SCH (18:51)
[2024-01-04 20:00] VITALS: BP 131/74; PULSE 79; RESP 16; TEMP 98.2
[2024-01-05] VITALS: BP 139/64; PULSE 79; RESP 19; TEMP 97.2
[2024-01-05 04:00] VITALS: BP 132/72; PULSE 82; RESP 19; TEMP 97.1
[2024-01-05 08:19] LABS: BASOPHILS % 1.2 % (0.0-2.0); EOSINOPHILS % 1.4 % (0.0-5.0); HEMATOCRIT. 24.5 % (36.0-48.0); LYMPHOCYTES % 24.1 % (20.0-50.0); MEAN CORPUSCULAR HEMOGLOBIN 28.7 pg (28.0-32.0); MEAN CORPUSCULAR HGB CONC 32.8 g/dL (31.0-37.0); MEAN CORPUSCULAR VOLUME 87.5 fL (81.0-99.0); MEAN PLATELET VOLUME 6.9 fl (7.4-10.4); MONOCYTES % 11.5 % (2.0-8.0); NEUTROPHILS % 61.8 % (40.0-76.0); PLATELET 534 x1000/uL (130-400); WHITE BLOOD COUNT 5.3 x1000/uL (4.5-11.0)
[2024-01-05 08:35] LABS: CARBON DIOXIDE 26 mEq/L (21-32); CHLORIDE 101 mEq/L (98-107); POTASSIUM 4.3 mEq/L (3.5-5.1); SODIUM 134 mEq/L (136-145)
[2024-01-05 08:36] LABS: CALCIUM 9.4 mg/dL (8.7-10.4)
[2024-01-05 08:40] LABS: CREATININE 0.5 mg/dL (0.6-1.0); GLUCOSE 120 mg/dL (70-105)
[2024-01-05 08:41] LABS: UREA NITROGEN BLOOD 8 mg/dL (9-23)
[2024-01-05 08:43] LABS: PHOSPHORUS 4.1 mg/dL (2.5-4.9)
[2024-01-05] MEDS ORDERED: NITR100C MT (11:55)
[2024-01-05 12:00] VITALS: BP 150/72; PULSE 80; RESP 18; TEMP 97.7
[2024-01-05 16:00] VITALS: BP 155/78; PULSE 73; RESP 18; TEMP 97.8
[2024-01-05 20:00] VITALS: BP 118/88; PULSE 84; RESP 18; TEMP 97.3
[2024-01-05] MEDS: HYDROCODONE/ACETAMINOPHEN 5/325MG TABLET PO PRN (22:31)
[2024-01-06] VITALS: BP 112/60; PULSE 71; RESP 18; TEMP 97.5
[2024-01-06] MEDS: HYDROCODONE/ACETAMINOPHEN 10/325MG TABLET PO NR (00:44)
[2024-01-06 04:00] VITALS: BP 137/68; PULSE 58; RESP 18; TEMP 97.7
[2024-01-06 04:36] VITALS: BP 131/67; PULSE 70; TEMP 97; O2SAT 98
[2024-01-06 07:32] LABS: BASOPHILS % 1.3 % (0.0-2.0); HEMATOCRIT. 22.4 % (36.0-48.0); HEMOGLOBIN. 7.6 g/dL (12.0-16.0); LYMPHOCYTES % 26.3 % (20.0-50.0); MEAN CORPUSCULAR HEMOGLOBIN 29.4 pg (28.0-32.0); MEAN CORPUSCULAR VOLUME 86.5 fL (81.0-99.0); MEAN PLATELET VOLUME 6.7 fl (7.4-10.4); MONOCYTES % 14.8 % (2.0-8.0); NEUTROPHILS % 55.6 % (40.0-76.0); PLATELET 545 x1000/uL (130-400); RED BLOOD CELL COUNT 2.59 mill/uL (4.2-5.4); RED CELL DISTRIBUTION WIDTH 19.9 % (11.6-14.6); WHITE BLOOD COUNT 5.1 x1000/uL (4.5-11.0)
[2024-01-06 08:00] VITALS: BP 131/67; PULSE 70; RESP 18; TEMP 97
[2024-01-06 08:02] LABS: CARBON DIOXIDE 25 mEq/L (21-32)
[2024-01-06 08:04] LABS: CALCIUM 9.4 mg/dL (8.7-10.4)
[2024-01-06 08:07] LABS: CREATININE 0.6 mg/dL (0.6-1.0)
[2024-01-06 08:08] LABS: GLUCOSE 111 mg/dL (70-105); UREA NITROGEN BLOOD 9 mg/dL (9-23)
[2024-01-06 08:10] LABS: PHOSPHORUS 3.5 mg/dL (2.5-4.9)
[2024-01-06 09:03] LABS: CHLORIDE 101 mEq/L (98-107); POTASSIUM 4.4 mEq/L (3.5-5.1); SODIUM 133 mEq/L (136-145)
[2024-01-06 12:00] VITALS: BP 131/75; PULSE 70; RESP 18; TEMP 97.6
== END 2024-01-06 16:48 | disposition home or self-care (01) | DRG 426 ==
LOC: ER 16:55 → EDBEDREQ 20:27 → EDBEDREQSVC 23:09 → EDBEDREQ 23:09 → ER 23:50 → 7WST 01-01 01:24
PROVIDERS: ADMIT Internal Medicine; ATTEND Internal Medicine
DX: E22.2 Syndrome of inappropriate secretion of antidiuretic hormone (principal); K85.90 Acute pancreatitis without necrosis or infection, unspecified; E11.649 Type 2 diabetes mellitus with hypoglycemia without coma; E83.39 Other disorders of phosphorus metabolism; N39.0 Urinary tract infection, site not specified; D64.9 Anemia, unspecified; I10 Essential (primary) hypertension; J45.909 Unspecified asthma, uncomplicated; F19.10 Other psychoactive substance abuse, uncomplicated; F16.129 Hallucinogen abuse with intoxication, unspecified; E87.6 Hypokalemia; E78.5 Hyperlipidemia, unspecified; B96.89 Other specified bacterial agents as the cause of diseases classified elsewhere; Z82.49 Family history of ischemic heart disease and other diseases of the circulatory system
CPT/HCPCS: 36415; 71045; 73630; 80048; 80053; 80061; 80076; 80305; 80320; 81003; 82533; 82962; 83036; 83540; 83550; 83735; 83935; 84100; 84145; 84295; 84439; 84443; 85014; 85018; 85025; 87077; 87186; 87804; 93970; 99285; C1893; J1650; J1815; J1885; J1956; J2185; J3475; J3480; J3490; J7030; J7060; Q0162; G0480